=== PATIENT | female | born 1965 | race Caucasian/White ===

== ENCOUNTER 2019-02-04 10:24 | Emergency (ER) | payer OTHER ==
[~2019-02-04] VITALS: Ht 152.4 cm; Wt 78.1 kg
[~2019-02-04 10:24] MED LIST: ACET325T33 PO; ACYC400T2 ORAL; AMLO-147 ORAL; ASPI-831 PO; ATOR20TA65 PO; FEXO60TA8 ORAL; FLUT16SP17 NASAL; HYDR-842 ORAL; LISI1TAB27 ORAL; METF100010 ORAL; NITR0.4T32 SL; OMEP40CA38 ORAL; PARO40TA79 ORAL; PIOG30TA71 ORAL
[2019-02-04 10:29] VITALS: Ht 152.4 cm; Wt 78.1 kg
[2019-02-04] MEDS ORDERED: SOD CHLORIDE 0.9% 1,000 ML IV STA (11:27)
[2019-02-04 12:30] VITALS: BP 128/72; PULSE 92; RESP 20
== END 2019-02-04 13:03 | disposition home or self-care (01) ==
LOC: E/R 10:24 → EDBD 10:24 → E/R 13:03
DX: E86.9 Volume depletion, unspecified (principal); I10 Essential (primary) hypertension; E11.65 Type 2 diabetes mellitus with hyperglycemia; Z79.84 Long term (current) use of oral hypoglycemic drugs
CPT/HCPCS: 36415; 70450; 71045; 80053; 84484; 85025; 93005; J7030; Z7502